=== PATIENT | female | born 1970 | race Two or more races ===

== ENCOUNTER 2021-09-23 01:45 | Emergency (ER) | payer OTHER ==
[2021-09-23 01:53] VITALS: BP 144/66; PULSE 73; RESP 16; TEMP 98.6; BMI 30.2
== END 2021-09-23 02:25 | disposition home or self-care (01) ==
LOC: FER 01:45
DX: N93.9 Abnormal uterine and vaginal bleeding, unspecified (principal)
CPT/HCPCS: 99283-25